=== PATIENT | female | born 1945 | race Caucasian/White ===

== ENCOUNTER 2023-08-23 11:59 | Emergency (ER) | payer MEDICARE, BC, SELFPAY ==
[2023-08-23 12:09] VITALS: BP 163/75; PULSE 87; RESP 17; TEMP 37.1; O2SAT 94; BMI 29.4
--- NOTE | 2023-08-23 12:22 | ED.GENADULT ---
HPI - General Adult General Chief complaint: Abdominal Pain Stated complaint: Abdominal pain, suspected hernia Time Seen by Provider: 08/23/23 12:06 Source: patient Mode of arrival: ambulatory Limitations: no limitations History of Present Illness HPI narrative: 78-year-old female presenting today with 2 concerns 1. She describes a hard painful lump just above her belly button. She states that it comes and goes. She has noticed it for the last 3 days. She states that right now it is not there. She denies nausea or vomiting. No weakness or lightheadedness. Her 2nd concern today is that she states her stools have been dark brown or black for the last 3 or 4 days as well. Again no lightheadedness or dizziness. She is not short of breath. No chest pain. She has not seen any dark red blood in her stools. No Difficulty urinating. No changes in her bowel habits. 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 Current medications include acetaminophen p.r.n., atorvastatin, carvedilol, losartan, nifedipine, pantoprazole in 40 mg daily. Related Data Allergies Allergy/AdvReac Type Severity Reaction Status Date / Time Penicillins Allergy Unknown Unknown Verified 08/23/23 12:06 Review of Systems Status of ROS: Reports: 10 or more systems reviewed and unremarkable except as noted in History and below Exam Narrative: Exam Narrative: Well-nourished well-developed patient in no acute distress. Alert and oriented. Answers questions appropriately. Mood and affect are appropriate. Thoughts are goal oriented and rational. No tangential or magical thinking noted. Patient speaks in full sentences without needing to catch her breath. She is hard of hearing. HEENT: Normocephalic atraumatic. Pupils are equally round reactive to light. Extraocular muscles are intact. Conjunctivae are moist without any icterus noted. Moist mucous membranes. Posterior pharynx is normal. Neck is soft without any lymphadenopathy or thyromegaly. No masses are appreciated. Cardiovascular: Heart is regular rate and rhythm S1 and S2 are present without any murmurs. Lungs: Clear to auscultation bilaterally no wheezes rhonchi or rales are appreciated. Patient takes deep breaths without any discomfort. Abdomen: Soft and nontender nondistended with normal bowel sounds. No guarding or rebound. No masses or organomegaly appreciated. Skin: Warm dry and intact. Rectal: Normal rectal tone. She does have some external hemorrhoids that are not thrombosed. There is no bleeding noted. Very small amount of stool in the rectal vault that is not dark or malodorous. Const: Vital Signs, click to edit/add: Vital Signs - 24 hr 08/23/23 12:09 Temperature 98.8 F Pulse Rate [Pulse Oximeter] 87 Respiratory Rate 17 Blood Pressure [Ri ght Upper Arm] 163/75 H Pulse Oximetry 94 Oxygen Delivery Me thod Room Air Course Course ED Course: Stool sample was sent for a fecal occult blood examination -this was negative. CBC is unremarkable. Chemistry show hyponatremia 127. Vital Signs Vital signs: Initial Vital Signs Temperature 98.8 F 08/23/23 12:09 Temperature Source Temporal Artery Scan 08/23/23 12:09 Pulse Rate 87 08/23/23 12:09 Respiratory Rate 17 08/23/23 12:09 Blood Pressure 163/75 H 08/23/23 12:09 Blood Pressure Mean 104 08/23/23 12:09 Pulse Oximetry 94 08/23/23 12:09 Oxygen Delivery Method Room Air 08/23/23 12:09 Vital Signs Temperature 98.8 F 08/23/23 12:09 Pulse Rate 87 08/23/23 12:09 Respiratory Rate 17 08/23/23 12:09 Blood Pressure 163/75 H 08/23/23 12:09 Pulse Oximetry 94 08/23/23 12:09 Oxygen Delivery Method Room Air 08/23/23 12:09 Temperature 98.8 F 08/23/23 12:09 Pulse Rate 87 08/23/23 12:09 Respiratory Rate 17 08/23/23 12:09 Blood Pressure 163/75 H 08/23/23 12:09 Pulse Oximetry 94 08/23/23 12:09 Oxygen Delivery Method Room Air 08/23/23 12:09 Medical Decision Making MDM Narrative Medical decision making narrative: 78-year-old female following 1. Firm periumbilical mass: Likely hernia. 2. Dark stools stool guaiac negative today with normal CBC. 3. Hyponatremia which is chronic. Patient does have appointment with her primary care provider already scheduled for Monday. I recommend she follow up at that time and discuss her symptoms. She may needed outpatient surgical consultation for a umbilical hernia and an outpatient colonoscopy if dark stools continue. Patient instructed to return to the ER if umbilical mass becomes very painful and does not reduce, or if she develops bright red blood per rectum. Medical Records Medical records reviewed: Yes I reviewed the patient's medical records Lab Data Lab results reviewed: Yes I reviewed the patient's lab results Labs: Lab Results 08/23/23 08/23/23 Range/Units 12:34 12:41 WBC 9.99 (4.50-11.00) K/uL RBC 3.90 L (4.00-5.20) m/uL Hgb 12.8 (12.0-16.0) gm/dL Hct 37.5 (33.0-51.0) % MCV 96 (80-100) fL MCH 33 (26-34) pg MCHC 34 (32-36) gm/dL RDW Coeff of Carla 12.9 (11.5-15.5) % Plt Count 311 (140-440) K/uL Neut % (Auto) 61.8 (42.0-72.0) % Lymph % (Auto) 24.5 (20-44) % Todd % (Auto) 8.8 (0.0-11.0) % Eos % (Auto) 3.8 (0.0-7.0) % Baso % (Auto) 0.9 (0.0-3.0) % Neut # (Auto) 6.17 (1.7-7.0) K/uL Lymph # (Auto) 2.45 (0.90-2.90) K/uL Todd # (Auto) 0.90 (0.00-0.90) K/UL Eos # (Auto) 0.38 (0.00-0.50) K/uL Baso # (Auto) 0.09 (0.00-0.30) K/uL Abs Immat Gran (auto) 0.02 (0.00-0.30) K/uL Imm/Tot Granulo (auto) 0.2 % Sodium 127 L (135-149) mmol/L Potassium 3.8 (3.6-5.1) mmol/L Chloride 88 L (96-114) mmol/L Carbon Dioxide 26 (20-32) mmol/L Anion Gap 13 (7-15) mEq/L BUN 17 (7-30) mg/dL Creatinine 0.5 (0.5-1.5) mg/dL Estimated Creat Clear 37.74 Estimated GFR 95 ml/min Glucose 85 (60-115) mg/dL Calcium 9.0 (8.4-10.6) mg/dL Stool Occult Blood Negative (Negative) Discharge Plan Discharge Clinical Impression: Hernia, umbilical, Hyponatremia, Dark stools Patient Disposition: Home, Self-Care Condition: Stable Additional Instructions: Your workup today was unremarkable-this included a stool guaiac test which was negative and a normal CBC. You do have low sodium at 127 which, per your medical records is not new for you, but you should have this rechecked at your appointment. Follow-up with your primary care provider on Monday as scheduled. During this appointment you can discuss the need for outpatient surgical consultation for a possible umbilical hernia and an outpatient colonoscopy if dark stools continue. Follow Up/Referrals: Ye Galvan MD [Referring] - Stand Alone Forms: Happy Inspector Info Instructions
[2023-08-23 12:55] LABS: Basophils Absolute Auto 0.09 K/uL (0.00-0.30); Basophils Percent Auto 0.9 % (0.0-3.0); Eosinophils Absolute Auto 0.38 K/uL (0.00-0.50); Eosinophils Percent Auto 3.8 % (0.0-7.0); Hematocrit 37.5 % (33.0-51.0); Hemoglobin* 12.8 gm/dL (12.0-16.0); Immature Granulocytes Abs Auto 0.02 K/uL (0.00-0.30); Immature Granulocytes Pct Auto 0.2 %; Lymphocytes Absolute Auto 2.45 K/uL (0.90-2.90); Lymphocytes Percent Auto 24.5 % (20-44); Mean Corpuscular HGB Conc 34 gm/dL (32-36); Mean Corpuscular Hemoglobin 33 pg (26-34); Mean Corpuscular Volume 96 fL (80-100); Monocytes Percent Auto 8.8 % (0.0-11.0); Neutrophils Absolute Auto 6.17 K/uL (1.7-7.0); Neutrophils Percent Auto 61.8 % (42.0-72.0); Platelet Count* 311 K/uL (140-440); RDW Coefficient of Variation % 12.9 % (11.5-15.5); White Blood Count* 9.99 K/uL (4.50-11.00)
[2023-08-23 13:07] LABS: Chloride* 88 mmol/L (96-114); Potassium* 3.8 mmol/L (3.6-5.1); Sodium* 127 mmol/L (135-149)
[2023-08-23 13:10] LABS: Anion Gap 13 mEq/L (7-15); Blood Urea Nitrogen* 17 mg/dL (7-30); Carbon Dioxide* 26 mmol/L (20-32); Creatinine* 0.5 mg/dL (0.5-1.5); Est. Creatinine Clearance* 37.74; Estimated Glomerular Filt Rate 95 ml/min; Glucose* 85 mg/dL (60-115); Slide Review Reflex No
[2023-08-23 13:12] LABS: Fecal Occult Blood* Negative (Negative)
== END 2023-08-23 13:53 | disposition home or self-care (01) ==
PROVIDERS: Emergency Provider Family Medicine; PCP Family Medicine
DX: K92.1 Melena (principal)
CPT/HCPCS: 36415; 80048; 82270; 85025; 99284

== ENCOUNTER 2024-01-11 06:07 | Day surgery (SDC) | payer MEDICARE, BC, SELFPAY ==
[2024-01-11] VITALS (15 sets, daily range): BP systolic 138–202; BP diastolic 65–88; PULSE 65–84; RESP 16–22; TEMP 36.8–36.9; O2SAT 92–96; BMI 29.5
[2024-01-11] MEDS: CEFAZOLIN 2 GM INJ IVP (00:52)
[2024-01-11] MEDS: SODIUM CHLORIDE 0.9 % (FLUSH) 10 ML SYRINGE IVF (07:03)
[2024-01-11] MEDS: LACTATED RINGERS 1000 ML 1,000 ML 100 ML IV (07:03)
[2024-01-11] MEDS: BUPIVACAINE 0.25% 30 ML 5 ML INJECTION (07:49)
[2024-01-11] MEDS: BUPIVACAINE LIPOSOME 133 MG/10 ML INJ INFILTRATI (08:24)
[2024-01-11] MEDS: BUPIVACAINE 0.25% 30 ML 10 ML INJECTION (08:24)
--- NOTE | 2024-01-11 08:34 | PM.GSPRC ---
Operative Note Date of procedure: 01/11/24 Pre-op diagnosis: Symptomatic Umbilical hernia Post-op diagnosis: Same Type of Procedure: Open repair 2 cm umbilical hernia with mesh Indications: Patient is a 78-year-old female who developed an umbilical hernia. This has been increasingly difficult for her to reduce. After discussion she elected to proceed with repair Procedure Description: After discussing the risks and benefits of the procedure, the patient signed informed consent.? The operative site was marked and the patient was brought to the operating room and placed on the operating table in supine position.? Care was taken to pad the patient's pressure points.?? The patient was then given sedation by anesthesia.?? The operative site was then prepped and draped in the usual sterile fashion.? A time-out was then performed. Local anesthetic was injected into the fascia, skin and subcutaneous tissues. A curvilinear incision was made just above the umbilicus. Dissection was carried down into the subcutaneous tissue using cautery. The hernia sac was encountered and care was taken to not enter it. Dissection was taken down to the fascia, and the umbilical stalk was carefully dissected off of the hernia sac. Once the hernia sac was dissected out circumferentially, it was reduced. The fascial edges were then cleared circumferentially. The hernia was 2 cm in size and so the decision was made to use a piece of mesh. A preperitoneal pocket was created using a combination of blunt dissection and cautery. Hemostasis appeared adequate. Once the posterior fascia was clear, a piece of [address] hernia mesh was placed in the preperitoneal space with care to ensure that it laid flat. This was secured into place using 2 0 PDS interrupted sutures. The tails were then trimmed and the fascial opening was closed with a running 0 Vicryl. The umbilicus was reapproximated to the fascia. The skin was then closed with running absorbable suture. A sterile dressing was then applied. ? The patient was then woken and transported to the recovery area in stable condition. ? The patient tolerated the procedure well. Findings: 2 cm fat-containing umbilical hernia Implants: Bard 3D max mesh Anesthesia: MAC Surgeon: Jessica Abreu MD Estimated blood loss (mL): 5 Condition: stable Disposition: PACU
[2024-01-11] MEDS: diphenhydrAMINE 25 MG CAPSULE PO (09:08)
--- NOTE | 2024-01-11 09:17 | W.ANESCHARGE ---
Anesthesia Charges Start Date/Time Anesthesia Start Date: 01/11/24 Anesthesia Start Time: 07:32 Stop Date/Time Anesthesia Stop Date: 01/11/24 Anesthesia Stop Time: 08:55 Summary Extremes of Age - Over 70 or under 1: SCRAP COLLECTOR
--- NOTE | 2024-01-11 10:09 | W.ANESCHARGE ---
Anesthesia Charges Start Date/Time Anesthesia Start Date: 01/11/24 Anesthesia Start Time: 07:32 Stop Date/Time Anesthesia Stop Date: 01/11/24 Anesthesia Stop Time: 08:55 Summary Extremes of Age - Over 70 or under 1: MDA
[2024-01-11] MEDS: LABETALOL HCL 5 MG/ML inj IVP (10:25)
[2024-01-11] MEDS: HYDRALAZINE HCL 20 MG/ML inj 10 MG IVP (10:55)
== END 2024-01-11 11:20 | disposition home or self-care (01) ==
PROVIDERS: PCP Family Medicine; Visit Provider Surgery
PROC: (CPT 49591; principal; 2024-01-11 07:30)
DX: K42.9 Umbilical hernia without obstruction or gangrene (principal)
CPT/HCPCS: 49591; 00752; 00830; 99100; A4467; A9270; C1781; C9290; J0360; J0665; J0690; J2250; J2405; J2704; J3010; J3490; J7120

== ENCOUNTER 2024-02-24 09:32 | Emergency (ER) | payer MEDICARE, BC, SELFPAY ==
--- OUTSIDE RECORDS SUMMARY | 2024-02-24 09:38 | XMS_ITS | Encounter Summary ---
Author Name Unknown Organization [facility] Address [address] [place] [id number] Care Team Providers Care Scrap Drop Operator Name Role Phone Elsewhere, Pcp Primary Care Provider Unavailabl e Reason for Visit * Reason Onset Date Comments Prosthetic Prescription 01/05/2024 Encounter Details Date Type Department Care Team (Latest Contact Info) Description 01/05/2024 Clinical Communication Department of Physical Medicine and Rehabilitation in [place], [place] [address] [place] [address] Keyon Hoffman M.D. [address] [place] [address] Prosthetic Prescription Social History Tobacco Use Types Packs/Day Years Used Date Smoking Tobacco: Never Smokeless Tobacco: Never Alcohol Use Standard Drinks/Week Comments Never 0 (1 standard drink = 0.6 oz pur e alcohol) Humiliation, Afraid, Rape, and Kick questionnair e Answer Date Recorded Within the last year, have y ou been afraid of your partner or ex-partner? No 07/15/2022 Within the last year, have y ou been humiliated or emotionally abused in other ways by your partner or ex-partner? No Within the last year, have y ou been kicked, hit, slapped, or otherwise physically hurt by your partner or ex-partner? No 07/15/2022 Within the last year, have y ou been raped or forced to have any kind of sexual activity by your partner or ex-partner? No 07/15/2022 Social Connection and Isolat ion Panel [NHANES] Answer Date Recorded In a typical week, how many times do you talk on the phone with family, friends, or neighbors? More than three times a week 07/15/2022 How often do you get togethe r with friends or relatives? Once a week 07/15/2022 How often do you attend chur ch or restorationist services? More than 4 times per year 07/15/2022 Do you belong to any clubs o r organizations such as samaritan groups, unions, fraternal or athletic groups, or school groups? No 07/15/2022 How often do you attend meet ings of the clubs or organizations you belong to? Never 07/15/2022 Are you , , di vorced, , never , or living with a partner? Never 07/15/2022 AUDIT-C Answer Date Recorded Q1: How often do you have a drink containing alc ohol? Never 07/15/2022 Average Number of Drinks Not on file 022 Frequency of Binge Drinking Not on file 06/24 Overall Financial Resource Strain (CARDIA) Answe r Date Recorded How hard is it for you to pa y for the very basics like food, housing, medical care, and heating? Not hard at all 07/15/2022 [employer] [facility] - Occupational Stress Questionnaire Answer Date Recorded Do you feel stress - tense, restless, nervous, or anxious, or unable to sleep at night because your mind is troubled all the time - these days? Not at all 07/15/2022 Exercise Vital Sign Answer Date Recorde d On average, how many days pe r week do you engage in moderate to strenuous exercise (like a brisk walk)? 0 days 07/15/2022 On average, how many minutes do you engage in exercise at this level? 0 min 07/15/2022 Hunger Vital Sign Answer Date Recorded Within the past 12 months, y ou worried that your food would run out before you got the money to buy more. Never true 07/15/20 22 Within the past 12 months, t he food you bought just didn't last and you didn't have money to get more. Never true 07/15/2022 PRAPARE - Transportation Answer Date Re corded In the past 12 months, has l ack of transportation kept you from medical appointments or from getting medications? No 06/24 In the past 12 months, has l ack of transportation kept you from meetings, work, or from getting things needed for daily living? No 07/15/2022 Housing Stability Vital Sign Answer Phillip e Recorded In the last 12 months, was t here a time when you were not able to pay the mortgage or rent on time? No 07/15/2022 In the last 12 months, how many places have you lived? 2 07/15/2022 In the last 12 months, was t here a time when you did not have a steady place to sleep or slept in a usp (including now)? No 07/15/2022 Nutrition Answer Date Recorded Nutrition: EVOO Fat Source No 07/15 On average, how many serving s of fruits and vegetables do you eat per day (serving size is equal to 1 cup or approximately the size of a tennis ball)? 0-1 07/15/2022 Dental Answer Date Recorded Dental: Regular Dentist Yes 07/15/20 Employment Answer Date Recorded Employment status Retired 07/15/2022 Education Answer Date Recorded What is the highest level of school you have completed or the highest degree you have received? 12th grade 07/15/2022 Sex and Gender Information Value Date Recorded Sex Assigned at Female 07/15/2022 11:12 AM CDT Gender Identity Female 07/15/2022 11:12 AM CDT Sexual Orientation Straight 07/15/2022 11 :12 AM CDT documented as of this encounter Miscellaneous Notes * Telephone Encounter - Renee Yun - 01/05/2024 10:07 AM CDT A prosthetic prescription was given to [facility], [address] [place] [address], [address], [place], [address]. documented in this encounter Plan of Treatment Not on file documented as of this encounter Visit Diagnoses Not on filedocumented in this encounter Care Teams Scrap Drop Operator Relationship Specialty Start Date End Date Elsewhere, Pcp PCP - General Internal Medicine 05/17/22 documented as of this encounter
--- OUTSIDE RECORDS SUMMARY | 2024-02-24 09:38 | XMS_ITS | Clinical Summary ---
Author Name Unknown Organization [facility] Address [address] [place] [address] Care Team Providers Care Therapist'S Assistant Name Role Phone Elsewhere, Pcp Primary Care Provider Unavailabl e Source Comments Patient records contain information from all sites at [facility]. For routine questions regarding patient records, call [phone] during business hours, M-F 8:00 AM - 5:00 PM Central Time. Record requests for emergency care only can be directed to [phone] at any time.[facility] Allergies Active Allergy Reactions Criticality Noted Date Comments Amoxicillin Itching Medium 05/17/2022 Atenolol Other (see comments) 05/17/2022 Fatigue Clindamycin Itching Medium 05/17/2022 Ibuprofen GI bleeding High 05/17/2022 Penicillins Itching Medium 05/17/2022 Medications Medication Sig Dispensed Refills Start Date End Date Status fish oil 500 mg capsule Take 1,000 mg by mouth 2 (two) times a day. Active vitamin A,C,N-zbbsjd-vvgvnb ls (OCUVITE W/LUTEIN) 300 mcg (1,000 Unit)-200 mg-60 Unit-2 mg tablet Take 1 tablet by mouth 2 (two) times a day with meals. Active carvediloL (COREG) 6.25 mg tablet Take 6.25 mg by mouth 2 (two) times a day with meals. Active cholecalciferol, vitamin D3, 25 mcg (1,000 Unit) tablet Take 50 mcg by mouth daily. Active NIFEdipine XL (PROCARDIA XL) 30 mg 24 hr tablet Take 60 mg by mouth daily. Active atorvastatin (LIPITOR) 10 mg tablet Take 10 mg by mouth daily. With evening meal Active ascorbic acid, vitamin C, (VITAMIN C) 500 mg tablet Take 500 mg by mouth 2 (two) times a day. Active acetaminophen (TYLENOL) 500 mg tablet Take 500 mg by mouth every 6 (six) hours as needed for pain. 500 to 1000 mg Active polyethylene glycol 400 (Blink Tears) 0.25 % ophthalmic solution 1 drop 2 (two) times a day as needed for dry eyes. Active furosemide (LASIX) 20 mg tablet Take 1 tablet (20 mg total) by mouth daily. Hold until PCP follow-up 05/25/2022 Active bisacodyL (DULCOLAX) 10 mg suppository Insert 1 suppository (10 mg total) into the rectum daily as needed for constipation. 05/25/2022 Active sodium chloride (OCEAN) 0.65 % nasal spray Administer 1 spray into each nostril as needed for congestion. 15 mL 12 07/11/2022 Active melatonin 3 mg tablet Take 2 tablets (6 mg total) by mouth at bedtime as needed for sleep. 30 tablet 1 07/11/2022 Active dextromethorphan-gu aiFENesin (ROBITUSSIN-DM) 10-100 mg/5 mL syrup Take 10 mL by mouth every 4 (four) hours as needed for cough or congestion. 354 mL 1 07/11/2022 Active polyethylene glycol (MIRALAX) 17 gram powder packet Take 1 packet (17 g total) by mouth 2 (two) times a day as needed for constipation. Dissolve each 17 g dose in 240 mLs (8 ounces) of beverage. 07/11/2022 Active losartan (COZAAR) 100 mg tablet Take 1 tablet (100 mg total) by mouth daily. Hypertension 07/11/2022 Active cefadroxil (DURICEF) 500 mg capsule Take 500 mg by mouth at bedtime. 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 06/29/2022 Osteomyelitis Lower Leg Acute Right 06/29/2022 Abscess Leg Right 06/27/2022 COVID-19 Infection 06/16/2022 Hyponatremia 05/25/2022 Anemia Posthemorrhagic Acute (Blood Loss Anemia) 05/25/2022 Amputation Leg Below Knee Status Post Right 04/24 Hypertension Essential Primary 05/17/2022 Obstructive Sleep Apnea Adult 05/17/2022 Hyperlipidemia 05/17/2022 Deafness Left 05/17/2022 PreDiabetes 05/17/2022 Gastroesophageal Reflux Disease NOS 11/14/2012 Resolved Problems Problem Noted Date Diagnosed Date Resolved Date Pharyngitis Acute 06/16/2022 07/05/2022 Other Acute Postprocedural Pain 05/22/2022 05/25/2022 Infection Foot 05/17/2022 05/25/2022 Arthritis Septic 05/17/2022 05/25/2022 Leukocytosis 05/17/2022 05/25/2022 Cellulitis Foot Right 05/17/20222021 Abnormal C Reactive Protein 05/17/2022 05/25/2022 Encounters Date Type Department Care Team Description 01/05/2024 Clinical Communication Department of Physical Medicine and Rehabilitation in [place], [place] [address] [place] [address] Keyon Hoffman M.D. Prosthetic Prescription 01/04/2024 11:00 AM CDT Comprehensive Visit Department of Physical Medicine and Rehabilitation in [place], [place] [address] [place] [address] Keyon Hoffman M.D. Amputation Leg Below Knee Status Post Right (HCC) (Primary Dx) from Last 3 Months Social History Tobacco Use Types Packs/Day Years Used Date Smoking Tobacco: Never Smokeless Tobacco: Never Tobacco Cessation:Counseling Given: No Alcohol Use Standard Drinks/Week Comments Never 0 [...] often do you attend chur ch or zoroastrianism services? More than 4 times per year 07/15/2022 Do you belong to any clubs o r organizations such as evangelical groups, unions, fraternal or athletic groups, or [...] and heating? Not hard at all 07/15/2022 [facility] - Occupational Stress [...] No 07/15/2022 Housing Stability Vital Sign Answer Phlilip e Recorded In the last 12 months, [...] place to sleep or slept in a skilled nursing (including now)? No 07/15/2022 Nutrition Answer Date [...] Orientation Straight 07/15/2022 11 :12 AM CDT Last Filed Vital Signs Vital Sign Reading Time Taken Comments Blood Pressure 118/57 07/11/2022 12:07 PM CDT Pulse 71 07/11/2022 12:07 PM CDT Temperature 37.2 ??C (99 ??F) 07/11/2022 12:07 PM CDT Respiratory Rate 16 07/11/2022 12:07 PM CDT Oxygen Saturation 94% 07/11/2022 12:07 PM CDT Inhaled Oxygen Concentration - - Weight 70.4 kg (155 lb 3.3 oz) 07/07/2022 12:06 AM CDT Height 160 cm (5' 3) 06/28/2022 6:06 AM CDT Body Mass Index 27.49 06/28/2022 6:06 AM CDT Plan of Treatment Health Maintenance Due Date Last Done Comments Office Visit for Blood Press ure Check / Re-check 05/17/2023 05/17/2022 Depression Screening (Annual PHQ-2) 10/23/2023 Fall Risk Screen (Annual) 10/23/2023 COVID-19 Vaccine (2022-11 4 season) 2024 11/28/2023, 09/20/2023, 04/06/2023, Additional history exists Creatinine Level (Kidney Fun ction Test) 12/20/2024 12/20/2023, 09/20/2023, 07/03/2022, Additional history exists Fasting Glucose for Diabetes Screening 12/20/2024 12/20/2023, 09/20/2023, 07/03/2022, Additional history exists Potassium Level 12/20/2024 12/20/2023, 08/24, 07/03/2022, Additional history exists Sodium Level 12/20/2024 12/20/2023, 08/24, 07/03/2022, Additional history exists DTaP,Tdap,and Td Vaccines (3 - Td or Tdap) 02/04/2026 02/05/2016, 03/22/2012, 03/27/2003 Pneumococcal vaccine (65+ years) Completed 03/25/20, 02/11/2009 Zoster Vaccines Completed 12/17/2018, 07/23, 04/03/2007 Influenza Vaccine Completed 08/15/2023, , 07/18/2021, Additional history exists Medical Devices Implanted Type Area Assembler Bonding Device Identifier Shelf Expiration Date Model / Serial / Lot Knee Implant Knee Implant Bilateral : Knee Procedures Procedure Name Priority Date/Time Associated Diagnosis Comments EXTI BASIC METABOLIC PANEL, S/P Routine 12/20/2023 12:04 PM WELDING ROBOT OPERATOR from Last 3 Months or Most Recently Relevant to Health Maintenance Advance Directives For more information, please contact: [phone] * DNR/DNI (Latest Code Status on File) Date Activated Date Inactivated Comments 05/25/2022 7:03 PM 07/11/2022 2:31 PM * DNR/DNI Date Activated Date Inactivated Comments 05/20/2022 11:24 PM 05/25/2022 3:10 PM * DNR/DNI Date Activated Date Inactivated Comments 05/20/2022 5:31 PM 05/20/2022 11:24 PM * DNR Date Activated Date Inactivated Comments 05/20/2022 9:39 AM 05/20/2022 5:31 PM * DNR/DNI Date Activated Date Inactivated Comments 05/17/2022 4:06 PM 05/20/2022 9:39 AM Care Teams Therapist'S Assistant Relationship Specialty Start Date End Date Elsewhere, Pcp PCP - General Internal Medicine 05/17/22
--- OUTSIDE RECORDS SUMMARY | 2024-02-24 09:38 | XMS_ITS | Referral Summary ---
Author Name Unknown Organization [facility] Address [address] [place] [address] Care Team Providers Care Fifth Hand Name Role Phone Elsewhere, Pcp Primary Care Provider Unavailabl e Source Comments Patient records contain information from all sites at [facility]. For routine questions regarding patient records, call [phone] during business hours, M-F 8:00 AM - 5:00 PM Central Time. Record requests for emergency care only can be directed to [phone] at any time.[facility] Encounters Date Type Department Care Team Description 01/05/2024 Clinical Communication Department of Physical Medicine and Rehabilitation in [place], [place] [address] [place] [address] Keyon Hoffman M.D. Prosthetic Prescription 01/04/2024 11:00 AM CDT Comprehensive Visit Department of Physical Medicine and Rehabilitation in [place], [place] [address] [place] [address] Keyon Hoffman M.D. 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 Active vitamin A,C,Q-xquunx-ksguwf ls (OCUVITE W/LUTEIN) 300 mcg (1,000 Unit)-200 [...] 05/17/20222021 Abnormal C Reactive Protein 05/17/2022 05/25/2022 Social History Tobacco Use Types Packs/Day Years [...] often do you attend chur ch or gnosticist services? More than 4 times per year 07/15/2022 Do you belong to any clubs o r organizations such as congregational groups, unions, fraternal or athletic groups, or [...] and heating? Not hard at all 07/15/2022 [facility] of Occupat ional Health - Occupational Stress [...] place to sleep or slept in a m[facility]p (including now)? No 07/15/2022 Nutrition Answer Date [...] 06/28/2022 6:06 AM CDT Plan of Treatment Not on file Medical Devices Implanted Type Area Sanitation Laborer Device Identifier Shelf Expiration Date Model / Serial / Lot Knee Implant Knee Implant Bilateral : Knee Procedures Procedure Name Priority Date/Time Associated Diagnosis Comments EXTI BASIC METABOLIC PANEL, S/P Routine 12/20/2023 12:04 PM SWEEPER BRUSH MAKER MACHINE from Last 3 Months or Most Recently Relevant to Health Maintenance Advance Directives For more information, please contact: [phone] * DNR/DNI (Latest Code Status on File) [...] 4:06 PM 05/20/2022 9:39 AM Care Teams Fifth Hand Relationship Specialty Start Date End Date Elsewhere, Pcp PCP - General Internal Medicine 05/17/22
--- OUTSIDE RECORDS SUMMARY | 2024-02-24 09:38 | XMS_ITS ---
Author Name Unknown Organization [facility] Address [address] [place] [address] Care Team Providers Care Metallurgical Lab Technician Name Role Phone Unavailable Unavailable Unavailable Surgery Details Not on file Complications Check Surgery Details section. Procedure Estimated Blood Loss Check Surgery Details section. Procedure Findings Check Surgery Details section. Procedure Specimens Taken Check Surgery Details section.
--- OUTSIDE RECORDS SUMMARY | 2024-02-24 09:39 | XMS_ITS | Encounter Summary ---
Author Name Unknown Organization [facility] Address [address] [place] [address] Care Team Providers Care Magazine Hand Name Role Phone Elsewhere, Pcp Primary Care Provider Unavailabl e Reason for Referral * Outpatient (Routine) - Authorized Specialty Diagnoses / Procedures Referred By Contact Referred To Contact Physical Medicine and Rehabilitation Keyon Hoffman M.D. [address] [place] [address] [facility] Referral ID Status Reason Start Date Expiration Date V isits Requested Visits Authorized [id number] Authorized 01/04/2024 07/05/2025 1 1 * Physical Therapy (Routine) - Authorized Specialty Diagnoses / Procedures Referred By Contac t Referred To Contact Diagnoses Amputation Leg Below Knee Status Post Right (HCC) Procedures Prosthetic prescription lower [place] [address] [facility] Referral ID Status Reason Start Date Expiration Date V isits Requested Visits Authorized [id number] Authorized 01/04/2024 01/03/2025 99 99 Reason for Visit * Outpatient (Routine) - Authorized Specialty Diagnoses / Procedures Referred By Contact Referred To Contact Physical Medicine and Rehabilitation Keyon Hoffman M.D. [address] [place] [address] [facility] Referral ID Status Reason Start Date Expiration Date V isits Requested Visits Authorized [id number] Authorized 05/17/2023 05/16/2026 2 2 Encounter Details Date Type Department Care Team (Latest Contact Info) Description 01/04/2024 11:00 AM CDT Comprehensive Visit Department of Physical Medicine and Rehabilitation in [place], [place] [address] [place] [address] Keyon Hoffman M.D. 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 More than 4 times per year 07/15/2022 Do you belong to any clubs o r organizations such as muslim groups, unions, fraternal or athletic groups, or [...] and heating? Not hard at all 07/15/2022 [facility] of Occupat ional Health - Occupational Stress [...] place to sleep or slept in a halfway (including now)? No 07/15/2022 Nutrition Answer Date [...] AM CDT documented as of this encounter Progress Notes * Humberto Lobo M.D. - 01/04/2024 11:00 AM CDT SUBJECTIVE REQUESTING PROVIDER Keyon Hoffman M.D. CHIEF COMPLAINT/REASON FOR VISIT HISTORY OF PRESENT ILLNESS Markjesusita Pereyra FREDRICK Mosley is a 78 y.o. female from [place], [place] with a past medical history of bilateral lower extremity edema secondary to peripheral venous insufficiency, bilateral total knee arthroplasties, right foot surgery with bone removal (about 2019), CATRACHITA on CPAP, left ear deafness, obesity (BMI 30.7), pre diabetes, hyperlipidemia, and essential hypertension. She developed a right foot infection in the context of worsening bilateral lower extremity edema inJuly 2021. She was admitted to the hospital in [place] where MRI on 05/13/2022 demonstrated subcutaneous abscess with concern for septic joint. I&D was performed on 05/13. Cultures grew 4+ staphaureus. She had continuing drainage from the wound and her local roller skate assembler recommended transfer [facility] where she was admitted on 05/17/2022. She underwent right transtibial amputation on 05/20/[address] Frank. There was some delay in healing as well as drainage from the residual limb butthis resolved and she was cleared to begin prosthetic training. She followed up in the amputee Clinic and was prescribed a right transtibial prosthesis. Fili from [facility] went up and visited her at the [facility]. She worked with therapy and was able to transfer to independent living in an apartment there. She was last seen in amputee clinic on 05/17/23 where it was noted that prior medial hamstring irritation was resolved with a linerand fungal infection was resolved with topical Monistat. Her socket was also slightly loose and hersock ply was increased to 5-ply. A new prescription was placed for a right transtibial prosthesis with silicone liner with pin lock, the prosthetic foot is a Balance S accommodative foot. This prosthesis was made at [facility], however, she has experienced maturation of the residual limb with reduction in volume which has required Fili at [facility] to go up from 3 ply to 8 ply socks and add several pads. She has been wearing a imaging account manager at night. Patient seen today alongside her sister, Claudia. Today, Mark reports that her leg has become smaller since her last visit. She feels that the socket is looser despite going up in sock ply and the addition of pads. She also feels looseness between her leg and the liner. She is not having any pain withuse of her prosthesis. She reports some redness and itching more proximally on her thigh that has developed over the last few weeks. This is located near the top of where her imaging account manager ends. She has not had issues with the skin of her posterior knee where she had a prior fungal infection. On three occasions her prosthesis has fallen off at the level of the pin-lock connection over the last few months. Each of these events occurred with transfers and her liner stayed on her leg. She confirms thatwhen donning the prosthesis in advance of these events she heard the pin lock mechanism engage with4 clicks. Despite this, she reports that she has tolerated her prosthesis rather well. She dons the prosthesis early in the morning and wears it all day without any breaks. She is able to walk around in her care facility for several walks per day, go on outdoor walks for exercise, and is able to sit in her prosthesis without significant difficulty. OBJECTIVE There were no vitals taken for this visit. PHYSICAL EXAMINATION General: She is a 78 y.o. female in no acute physical distress. Extremities: Right lower extremity residual limb status post right transtibial amputation with a well-healed surgical site incision. There is significant redundant tissue at the distal most aspect ofher residual limb that falls posteriorly with a lamina dependent position. Skin: Area of skin irritation proximally on the thigh with signs of excoriation likely from itching. No erythema or skin defects posteriorly of the site of prior fungal infection. Prosthesis: Right transtibial prosthesis with Keasy Cone and silicone liners with 3 pads at the [place] liner. The silicone liner is slightly loose near the proximal tibia. Socket is slightly loose with 8 sock ply the prosthetic foot is a Balance S accommodative foot. Gait: Patient was able to stand and ambulate independently with the use of a 2 wheeled walker down the hallway and back. She has a step to gait and her prosthetic leg is slightly short. ASSESSMENT / PLAN Ms. Mosley is a 78 y.o. female from [place], [place] with a past medical history of bilateral lower extremity edema secondary to peripheral venous insufficiency, bilateral total knee arthroplasties, right foot surgery with bone removal (about 2019), CATRACHITA on CPAP, left ear deafness, obesity (BMI 30.7), pre diabetes, hyperlipidemia, and essential hypertension. She required a right transtibial amputation on 05/20/2022. Ms. Mosley is overall pleased with her prosthesis and thankful for how she is able to ambulate withit. However, she is having some difficulties which are due to the socket being loose fitting which is a result the maturation of her residual limb and atrophy of soft tissues. Challenges with her prosthetic fit and management have been due to the redundant tissue distally and issues related to her skin she reports she is sensitive skin. Specifically the area of skin irritation proximally on her thigh he has likely a result of a new imaging account manager with silicone weighing station operator points of the proximal band of the imaging account manager. We believe that the issue she has been having with her pin-lock disengaging is likely due to contact with the release mechanism when performing transfers as her liner remains on her residuallimb and on evaluation the mechanism appears to be functioning appropriately. Ultimately, she is appropriate for a replacement socket at this time. A prescription will be written for a right transtibial permanent socket with suspension locking mechanism in the form of a pin lock, silicone liner, and Keasy Cone. We will also downsized the silicone liner to allow for a more opt imal fit and shortened the pin release mechanisms so she does not accidentally release it during transfers. Fili will also get her a new Oracle Adf Developer without gripping dots at the top cuff. We also reviewed skin and liner/sock hygiene at today's appointment. Specifically we would like herto continue washing her liner with soap and water daily. We recommend using a soap that does not irritate her skin when washing the silicone liner to prevent any dermatitis. After Mark Mosley LPN's edwu-pq-pchf visit today I anticipate she has good potential to function at a K2 level (Has the ability or potential for ambulation with the ability to traverse low level environmental barriers such as curbs, stairs or uneven surfaces. Typical of the limited communityambulator). she is motivated to use the prosthesis to ambulate within her care facility, go on walks for pleasure/exercise, and visit with her friends and family in social settings. EDUCATION: We discussed the diagnosis and treatment plan in detail. Mark Mosley LPN expressed understanding of the content. No apparent learning barriers were identified; learning preferences include listening. Her questions were answered. She will be seen in follow up in the amputee clinic in 1 year but she is aware that we are always here if she to see us sooner or has any difficulties. Time spent with the patient: 60 minutes Associated attestation - Keyon Hoffman M.D. - 01/04/2024 4:22 PM CDT The following portions of the patient's history were reviewed and updated as appropriate: current medications, allergies, medical history, surgical history, social history, family history, and problem list. I reviewed the pertinent imaging studies and agree with the interpretations as recorded. I reviewed the pertinent laboratory and diagnostic data. I reviewed the pertinent clinical notes in the electronic health record. I saw and evaluated the patient, participating in the dubose portions of the service. I reviewed the case in detail, and agree with the resident???s plan. Please see today's note by Dr. Lobo for additional details and documentation. I spent 30 minutes with the patient on this follow-up visit. * Keyon Hoffman M.D. - 01/04/2024 11:00 AM CDT A prescription was placed for the following: Lower Extremity Prescription Expected Level of Function (K): 2 - Limited community ambulator Anatomical Change?: Yes Prosthetic Side: Right Right Lower Extremity Level: Transtibial Prosthesis: Definitive Design: Endoskeletal Socket Design: Patellar-Tendon Bearing and Socket Replacement Liner: Silicone (Silicone liner with pin lock and Keasy Cone liner) Suspension: Suspension Locking Mechanism Miscellaneous: Compression Socks, Prosthetic Socks, Sheath, Test Socket, Molded Distal Cushion, Alignable System, Ultralight, Total Contact, External Frame and Acrylic Socket Compression Sock Quantity: 2 Sheath Quantity: 6 Prosthetic Sock Quantity: 12 documented in this encounter Plan of Treatment Scheduled Referrals Name Type Priority Associated Diagnoses Order Schedule Physical Medicine and Rehabilitation office visit (clinic) Outpatient Referral Routine Expected: 01/03/2025 (Approximate), Expires: 04/05/2025 documented as of this encounter Visit Diagnoses Diagnosis Amputation Leg Below Knee Status Post Right (HCC)- Primary documented in this encounter Care Teams Magazine Hand Relationship Specialty Start Date End Date Elsewhere, Pcp PCP - General Internal Medicine 05/17/22 documented as of this encounter
--- OUTSIDE RECORDS SUMMARY | 2024-02-24 09:39 | XMS_ITS | Continuity of Care Document ---
Author Name Unknown Organization [facility] Address [address] [address] [place] [address] Phone Care Team Providers Care Refrigeration Plant Cork Insulator Name Role Phone Unavailable Unavailable Unavailable Procedures Procedure Date Subsqt Hosp-da E&m Stable 15 M 18 Init Hosp-da E&m Mod Severity 8 Ugi Endo; W/contrl Bleed Any M 18 Advance Directives Directive Yes / No Effective Date File Name No Information Encounters Encounter Description Practice Location Reason(s) For Visit Diagnoses Date Provider Providers Copied on Encounter Subsqt Hosp-da E&m Stable 15 M [facility] [place], [address] [address], [place], [place], [id number], tel:[phone] [facility] No Information 8 No Information Referring Provider: Rubin Castaneda, [address] [place], [address]. tel:[phone] Init Hosp-da E&m Mod Severity [facility], [address] [address], [place], [place], [id number], tel:[phone] [facility] No Information 8 [facility]. [address] [facility] [address], [place], [place], [id number], [place]. tel:[phone] Referring Provider: Rubin Castaneda, [address] [place], [address]. tel:[phone] Family History Family Member Type Diagnosis Age At Onset No Information Payers Payer name Insurance type Covered alliance party ID Authordaniloa timadiha(s) Blue [employer] [place] [employer] BL [id number] Social History Type Description Quantity Date Captured Comments Sex Female Smoking Status No Information Chief Complaint And Reason For Visit No Information Reason For Referral Reason For Referral No Information History Of Present Illness Encounter Date Complaint History Of Prese nt Illness No Information Functional Status Date Functional Assessmen t No Information Instructions Date Instruction Additional Infor mation No Information Assessments Type Assessment Date No Information Patient Care Teams Name Effective Dates (start - stop) Status Members No Information
[2024-02-24 09:48] VITALS: BP 167/76; PULSE 78; RESP 20; TEMP 37.5; O2SAT 95; BMI 32.8
[2024-02-24 10:20] VITALS: O2SAT 92
--- NOTE | 2024-02-24 10:21 | XR_ITS ---
Patient: KHUSHBU FOREMAN Facility:?[facility] Patient ID:?[id number] Site Patient ID:?[id number]. Site :?[id number] Study:?XRay-Chest 2 VIEW-02/24/2024 10:33:14 AM Ordering Physician:HI Final Report: INDICATION: Shortness of breath TECHNIQUE: Chest 2 views. COMPARISON: Chest x-ray 10/02/2015 FINDINGS: The heart is stable in size. The pulmonary vasculature is within normal limits. The lungs are clear without focal consolidation, pleural effusion or pneumothorax. There are wauq-vn-oicphpmh degenerative changes of the thoracic spine. IMPRESSION: No acute process. Dictated by Debby Pyle MD @ 02/24/2024 11:03:18 AM Dictated by: Debby Pyle MD @ 02/24/2024 11:03:24 Signed by:Benjy Pyle MD @02/24/2024 11:03:24 AM (Electronic Signature)
--- OUTSIDE RECORDS SUMMARY | 2024-02-24 10:28 | XMS_ITS ---
Author Name Unknown Organization [facility] Address [address] [place] [address] Care Team Providers Care Broomcorn Sorter Name Role Phone Unavailable Unavailable Unavailable Surgery Details Not on file Complications Check Surgery Details section. Procedure Estimated Blood Loss Check Surgery Details section. Procedure Findings Check Surgery Details section. Procedure Specimens Taken Check Surgery Details section.
--- OUTSIDE RECORDS SUMMARY | 2024-02-24 10:28 | XMS_ITS | Encounter Summary ---
Author Name Unknown Organization [facility] Address [address] [place] [address] Care Team Providers Care Major Gifts Director Name Role Phone Elsewhere, Pcp Primary Care Provider Unavailabl e Reason for Visit * Reason Onset Date Comments Prosthetic Prescription 01/05/2024 Encounter Details Date Type Department Care Team (Latest Contact Info) Description 01/05/2024 Clinical Communication Department of Physical Medicine and Rehabilitation in [place], [place] [address] [place] [address] Keyon Hoffman M.D. [address] [place] [address] Prosthetic Prescription Social History Tobacco Use Types [...] often do you attend chur ch or jehovah's witness services? More than 4 times per year 07/15/2022 Do you belong to any clubs o r organizations such as advent groups, unions, fraternal or athletic groups, or [...] and heating? Not hard at all 07/15/2022 [facility] of Occupat ional Health - Occupational Stress [...] place to sleep or slept in a penitentiary (including now)? No 07/15/2022 Nutrition Answer Date [...] prosthetic prescription was given to [facility], [address] [place] [address], [address], [place], [address]. documented in this encounter Plan of Treatment Not on file documented as of this encounter Visit Diagnoses Not on filedocumented in this encounter Care Teams Major Gifts Director Relationship Specialty Start Date End Date Elsewhere, Pcp PCP - General Internal Medicine 05/17/22 documented as of this encounter
--- OUTSIDE RECORDS SUMMARY | 2024-02-24 10:28 | XMS_ITS | Clinical Summary ---
Author Name Unknown Organization [facility] Address [address] [place] [address] Care Team Providers Care Customer Relations Consultant Name Role Phone Elsewhere, Pcp Primary Care Provider Unavailabl e Source Comments Patient records contain information from all sites at [facility]. For routine questions regarding patient records, call [phone] during business hours, M-F 8:00 AM - 5:00 PM Central Time. Record requests for emergency care only can be directed to [phone] at any time.[facility] Allergies Active Allergy Reactions Criticality Noted Date Comments Amoxicillin Itching Medium 05/17/2022 Atenolol Other (see comments) 05/17/2022 Fatigue Clindamycin Itching Medium 05/17/2022 Ibuprofen GI bleeding High 05/17/2022 Penicillins Itching Medium 05/17/2022 Medications Medication Sig Dispensed Refills Start Date End Date Status fish oil 500 mg capsule Take 1,000 mg by mouth 2 (two) times a day. Active vitamin A,C,D-blggvr-egjbtn ls (OCUVITE W/LUTEIN) 300 mcg (1,000 Unit)-200 [...] Department of Physical Medicine and Rehabilitation in [place], [place] [address] [place] [address] Keyon Hoffman M.D. Prosthetic Prescription 01/04/2024 11:00 AM CDT Comprehensive Visit Department of Physical Medicine and Rehabilitation in [place], [place] [address] [place] [address] Keyon Hoffman M.D. Amputation Leg Below Knee [...] often do you attend chur ch or congregational services? More than 4 times per year 07/15/2022 Do you belong to any clubs o r organizations such as religious groups, unions, fraternal or athletic groups, or [...] and heating? Not hard at all 07/15/2022 [facility] of Occupat ional Health - Occupational [...] place to sleep or slept in a half-way (including now)? No 07/15/2022 Nutrition Answer Date [...] history exists Medical Devices Implanted Type Area Agronomy Instructor Device Identifier Shelf Expiration Date Model / Serial / Lot Knee Implant Knee Implant Bilateral : Knee Procedures Procedure Name Priority Date/Time Associated Diagnosis Comments EXTI BASIC METABOLIC PANEL, S/P Routine 12/20/2023 12:04 PM MANAGER MAIL from Last 3 Months or Most Recently Relevant to Health Maintenance Advance Directives For more information, please contact: [phone] * DNR/DNI (Latest Code Status on File) [...] 4:06 PM 05/20/2022 9:39 AM Care Teams Customer Relations Consultant Relationship Specialty Start Date End Date Elsewhere, Pcp PCP - General Internal Medicine 05/17/22
--- OUTSIDE RECORDS SUMMARY | 2024-02-24 10:28 | XMS_ITS | Continuity of Care Document ---
Author Name Unknown Organization [facility] Address [address] [address] [place] [address] Phone Care Team Providers Care Rn Pool Name Role Phone Unavailable Unavailable Unavailable Procedures Procedure Date Subsqt Hosp-da E&m Stable 15 M 18 Init Hosp-da E&m Mod Severity 8 Ugi Endo; W/contrl Bleed Any M 18 Advance Directives Directive Yes / No Effective Date File Name No Information Encounters Encounter Description Practice Location Reason(s) For Visit Diagnoses Date Provider Providers Copied on Encounter Subsqt Hosp-da E&m Stable 15 M [facility] [place], [address] [address], [place], [place], [id number], tel:[phone] [facility] No Information 8 No Information Referring Provider: Rubin Castaneda, [address] [place], [address]. tel:[phone] Init Hosp-da E&m Mod Severity [facility], [address] [address], [place], [place], [address], tel:[phone] [facility] No Information 8 [facility]. [address] [facility], [facility] [address], [place], [place], [id number], [place]. tel:[phone] Referring Provider: Rubin Castaneda, [address] [place], [address]. tel:[phone] Family History Family Member Type Diagnosis Age At Onset No Information Payers Payer name Insurance type Covered libertarian ID Authordaniloa timadiha(s) Blue Cross [place] Blue BL [id number] Social History Type Description Quantity Date Captured [...]
--- OUTSIDE RECORDS SUMMARY | 2024-02-24 10:28 | XMS_ITS | Referral Summary ---
Author Name Unknown Organization [facility] Address [address] [place] [address] Care Team Providers Care Entry Specialist Name Role Phone Elsewhere, Pcp Primary Care Provider Unavailabl e Source Comments Patient records contain information from all sites at [facility]. For routine questions regarding patient records, call [phone] during business hours, M-F 8:00 AM - 5:00 PM Central Time. Record requests for emergency care only can be directed to [phone] at any time.[facility] Encounters Date Type Department Care Team Description 01/05/2024 Clinical Communication Department of Physical Medicine and Rehabilitation in [place], [place] [address] [place] [address] Keyon Hoffman M.D. Prosthetic Prescription 01/04/2024 11:00 AM CDT Comprehensive Visit Department of Physical Medicine and Rehabilitation in [place], [place] [address] [place] [address] Keyon Hoffman M.D. Amputation Leg Below Knee [...] 2 (two) times a day. Active vitamin A,C,K-nmitrd-cqozet ls (OCUVITE W/LUTEIN) 300 mcg (1,000 Unit)-200 [...] often do you attend chur ch or hindu services? More than 4 times per year 07/15/2022 Do you belong to any clubs o r organizations such as yarsanism groups, unions, fraternal or athletic groups, or [...] and heating? Not hard at all 07/15/2022 [facility] of Occupat ional Health - Occupational Stress [...] place to sleep or slept in a custodial (including now)? No 07/15/2022 Nutrition Answer Date [...] on file Medical Devices Implanted Type Area Sheep Sorter Device Identifier Shelf Expiration Date Model / Serial / Lot Knee Implant Knee Implant Bilateral : Knee Procedures Procedure Name Priority Date/Time Associated Diagnosis Comments EXTI BASIC METABOLIC PANEL, S/P Routine 12/20/2023 12:04 PM POLYSOMNOGRAPHIC TECHNOLOGIST from Last 3 Months or Most Recently Relevant to Health Maintenance Advance Directives For more information, please contact: [phone] * DNR/DNI (Latest Code Status on File) [...] 4:06 PM 05/20/2022 9:39 AM Care Teams Entry Specialist Relationship Specialty Start Date End Date Elsewhere, Pcp PCP - General Internal Medicine 05/17/22
--- OUTSIDE RECORDS SUMMARY | 2024-02-24 10:28 | XMS_ITS | Encounter Summary ---
Author Name Unknown Organization [facility] Address [address] [place] [address] Care Team Providers Care Sap Basis Consultant Name Role Phone Elsewhere, Pcp Primary Care Provider Unavailabl e Reason for Referral * Outpatient (Routine) - Authorized Specialty Diagnoses / Procedures Referred By Contact Referred To Contact Physical Medicine and Rehabilitation Keyon Hoffman M.D. 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 [address] [facility] Referral ID Status Reason Start Date Expiration Date V isits Requested Visits Authorized [id number] Authorized 01/04/2024 01/03/2025 99 99 Reason for Visit * Outpatient (Routine) - Authorized Specialty Diagnoses / Procedures Referred By Contact Referred To Contact Physical Medicine and Rehabilitation Keyon Hfofman M.D. [address] [place] [address] [facility] Referral ID Status Reason Start Date Expiration Date V isits Requested Visits Authorized [id number] Authorized 05/17/2023 05/16/2026 2 2 Encounter Details Date Type Department Care Team (Latest Contact Info) Description 01/04/2024 11:00 AM CDT Comprehensive Visit Department of Physical Medicine and Rehabilitation in [place], [place] [address] [place] [address] Keyon Hoffman M.D. [address] [place] [address] Amputation Leg Below Knee Status Post Right [...] How often do you attend chur or islam services? More than 4 times per year 07/15/2022 Do you belong to any clubs o r organizations such as shinto groups, unions, fraternal or athletic groups, or [...] and heating? Not hard at all 07/15/2022 [facility] of Occupat ional Health - Occupational Stress [...] Mosley is a 78 y.o. female from [place], [place] with a past medical history of [...] She was admitted to the hospital in [place] where MRI on 05/13/2022 demonstrated subcutaneous abscess with concern for septic joint. I&D was performed on 05/13. Cultures grew 4+ staphaureus. She had continuing drainage from the wound and her local split and drum room supervisor recommended transfer [facility] where she was admitted on 05/17/2022. She underwent right transtibial amputation on 05/20/[address] Frank. There was some delay in healing as well as drainage from the residual limb butthis resolved and she was cleared to begin prosthetic training. She followed up in the amputee Clinic and was prescribed a right transtibial prosthesis. Fili from [facility] went up and visited her at the [facility]. She worked with therapy and was able [...] foot. This prosthesis was made at [facility], however, she has experienced maturation of the residual limb with reduction in volume which has required Fili at [facility] to go up from 3 ply to 8 ply socks and add several pads. She has been wearing a plastic manager at night. Patient seen today alongside [...] located near the top of where her plastic manager ends. She has not had issues [...] silicone liners with 3 pads at the [place] liner. The silicone liner is slightly loose [...] Mosley is a 78 y.o. female from [place], [place] with a past medical history of [...] has likely a result of a new plastic manager with silicone director of primary points of the proximal band of the plastic manager. We believe that the issue she [...] Fili will also get her a new Crop Or Grain Farmer without gripping dots at the top cuff. We also reviewed skin and liner/sock hygiene at today's appointment. Specifically we would like herto continue washing her liner with soap and water daily. We recommend using a soap that does not irritate her skin when washing the silicone liner to prevent any dermatitis. After Mark Mosley LPN's vkqa-ua-rutz visit today I anticipate she has good [...] Primary documented in this encounter Care Teams Sap Basis Consultant Relationship Specialty Start Date End Date Elsewhere, Pcp PCP - General Internal Medicine 05/17/22 documented as of this encounter
--- OUTSIDE RECORDS SUMMARY | 2024-02-24 10:28 | XMS_ITS | Continuity of Care Document ---
Author Name Unknown Organization [facility] Address [address] [address] [place] [address] Phone Care Team Providers Care Tariff Supervisor Name Role Phone Unavailable Unavailable Unavailable Procedures Procedure Date Subsqt Hosp-da E&m Stable 15 M 18 Init Hosp-da E&m Mod Severity 8 Ugi Endo; W/contrl Bleed Any M 18 Advance Directives Directive Yes / No Effective Date File Name No Information Encounters Encounter Description Practice Location Reason(s) For Visit Diagnoses Date Provider Providers Copied on Encounter Subsqt Hosp-da E&m Stable 15 M [facility] [place], [address] [address], [place], [place], [id number], tel:[phone] [facility] No Information 8 No Information Referring Provider: Rubin Castaneda, [address] [place], [address]. tel:[phone] Init Hosp-da E&m Mod Severity [facility], [address] [address], [place], [place], [id number], tel:[phone] [facility] No Information 8 [facility]. [address] [facility] [facility] [address], [place], [place], [id number], [place]. tel:[phone] Referring Provider: Rubin Castaneda, [address] [place], [address]. tel:[phone] Family History Family Member Type Diagnosis Age At Onset No Information Payers Payer name Insurance type Covered constitution party ID Authordaniloa timadiha(s) Blue Cross [place] Blue BL [id number] Social History Type Description Quantity Date Captured [...]
--- NOTE | 2024-02-24 10:33 | ED_ITS ---
HPI - General Adult General Chief complaint: Shortness of Breath/Dyspnea Stated complaint: wheezing Time Seen by Provider: 02/24/24 09:43 Source: patient Mode of arrival: ambulatory Limitations: no limitations History of Present Illness HPI narrative: Patient is an 79-year-old female coming in today complaining of 6 days of cough. She states that in the last 2 days her coughing fits or so significant that she feels like she can not breathe. She denies any fevers or chills. Appetite has been normal. She is not short of breath LS she is having a coughing spell. She denies any chest or abdominal pain. She denies any sick contacts that she is aware of. She denies any tobacco use, history of asthma or COPD. She also complains of a sore throat. Related Data Home Medications Medication Instructions Recorded Confirmed ascorbic acid (vitamin C) 500 mg 500 mg PO BID 01/10/24 01/10/24 tablet (Vitamin C) atorvastatin 10 mg tablet 10 mg PO DAILY 01/10/24 01/10/24 carvedilol 6.25 mg tablet 12.5 mg PO BID 01/10/24 01/11/24 cholecalciferol (vitamin D3) 50 2,000 unit PO DAILY 01/10/24 01/10/24 mcg (2,000 unit) capsule losartan 100 mg tablet 100 mg PO DAILY 01/10/24 01/10/24 nifedipine 30 mg tablet,extended mg PO 01/10/24 release 24 hr omega 0-xfd-ovx-fish oil 60 mg-90 2 cap PO BID 01/10/24 01/10/24 mg-500 mg capsule (Fish Oil) pantoprazole 40 mg tablet,delayed 40 mg PO DAILY 01/10/24 01/10/24 release vit A 300 mcg-C 200 mg-E 27 1 tab PO BID 01/10/24 01/10/24 mg-lutein 2 mg and minerals tablet (I-Freya) Previous Rx's Medication Instructions Recorded hydrocortisone 2.5 % topical cream 1 applic topical BID PRN #20 grams 01/11/24 oxycodone 5 mg tablet 5 mg PO Q8H PRN pain #9 tabs 01/11/24 nystatin 100,000 unit/gram topical 1 applic topical DAILY #15 grams 02/08/24 cream benzonatate 100 mg capsule 100 mg PO TID PRN cough #10 caps 02/24/24 Allergies Allergy/AdvReac Type Severity Reaction Status Date / Time Penicillins Allergy Unknown Unknown Verified 08/23/23 12:06 amoxicillin Allergy itching Verified 01/10/24 07:36 atenolol Allergy Fatigued Verified 01/10/24 07:36 clindamycin Allergy Itching Verified 01/10/24 07:36 ibuprofen Allergy GI bleed Verified 01/10/24 07:36 Review of Systems Status of ROS: Reports: 10 or more systems reviewed and unremarkable except as noted in History and below PFSH [facility] Medical History Prediabetes ?R73.03 - Prediabetes (ICD-10) Other hyperlipidemia ?E78.49 - Other hyperlipidemia (ICD-10) Essential hypertension ?I10 - Essential (primary) hypertension (ICD-10) GERD (gastroesophageal reflux disease) ?K21.9 - Gastro-esophageal reflux disease without esophagitis (ICD-10) CATRACHITA (obstructive sleep apnea) ?G47.33 - Obstructive sleep apnea (adult) (pediatric) (ICD-10) Surgical History Hx of cataract extraction ?Z98.49 - Cataract extraction status, unspecified eye (ICD-10) History of bilateral knee replacement ?Z96.653 - Presence of artificial knee joint, bilateral (ICD-10) Hx of below knee amputation ?Z89.519 - Acquired absence of unspecified leg below knee (ICD-10) Social History Smoking Status: Never smoker Do you use any of these nicotine containing products: None How often do you have a drink containing alcohol: never How often do you have six or more drinks on one occasion: Never AUDIT-C Alcohol total score: 0 Non-prescribed substance use: denies use Caffeine: Yes (2 cups coffee/day) Are you using contraception or practicing any form of control: No service: No Exam Narrative: Exam Narrative: Well-nourished well-developed patient in no acute distress. Alert and oriented. Answers questions appropriately. Mood and affect are appropriate. Thoughts are goal oriented and rational. No tangential or magical thinking noted. Patient speaks in full sentences without needing to catch her breath. Voice is hoarse. HEENT: Normocephalic atraumatic. Pupils are equally round reactive to light. Extraocular muscles are intact. Conjunctivae are moist without any icterus noted. Moist mucous membranes. Posterior pharynx is normal. Neck is soft. Cardiovascular: Heart is regular rate and rhythm S1 and S2 are present without any murmurs. Lungs: Clear to auscultation bilaterally no wheezes rhonchi or rales are appreciated. Patient takes deep breaths without any discomfort. Abdomen: Soft and nontender nondistended with normal bowel sounds. Extremities: Patient has had an amputation of the right lower extremity, she has some chronic swelling of the left lower extremity. Skin: Well perfused. Const: Vital Signs, click to edit/add: Vital Signs - 24 hr 02/24/24 09:48 02/24/24 10:20 02/24/24 11:05 Temperature 99.5 F Pulse Rate 73 Pulse Rate [Pulse Oximeter] 78 Respiratory Rate 20 Blood Pressure Blood Pressure [Ri ght Upper Arm] 167/76 H Pulse Oximetry 95 92 91 Oxygen Delivery Me thod Room Air 02/24/24 11:15 02/24/24 11:16 Temperature Pulse Rate 78 74 Pulse Rate [Pulse Oximeter] Respiratory Rate Blood Pressure 154/54 H Blood Pressure [Ri ght Upper Arm] Pulse Oximetry 95 94 Oxygen Delivery Me thod Course Course ED Course: ML is unremarkable, white cell count is minimally elevated at 11.89. Chest x-ray, read by me, does not show any acute pathology. CRP is 1.6. Strep is negative. Triple swab is positive for COVID-19. Vital Signs Vital signs: Initial Vital Signs Temperature 99.5 F 02/24/24 09:48 Temperature Source Temporal Artery Scan 02/24/24 09:48 Pulse Rate 78 02/24/24 09:48 Respiratory Rate 20 02/24/24 09:48 Blood Pressure 167/76 H 02/24/24 09:48 Blood Pressure Mean 106 H 02/24/24 09:48 Pulse Oximetry 95 02/24/24 09:48 Oxygen Delivery Method Room Air 02/24/24 09:48 Vital Signs Temperature 99.5 F 02/24/24 09:48 Pulse Rate 78 02/24/24 09:48 Respiratory Rate 20 02/24/24 09:48 Blood Pressure 167/76 H 02/24/24 09:48 Pulse Oximetry 95 02/24/24 09:48 Oxygen Delivery Method Room Air 02/24/24 09:48 Temperature 99.5 F 02/24/24 09:48 Pulse Rate 74 02/24/24 11:16 Respiratory Rate 20 02/24/24 09:48 Blood Pressure 154/54 H 02/24/24 11:15 Pulse Oximetry 94 02/24/24 11:16 Oxygen Delivery Method Room Air 02/24/24 09:48 Medical Decision Making MDM Narrative Medical decision making narrative: 79-year-old female with COVID-19, on day 6 of her symptoms. She is not hypoxic and is otherwise doing well. Patient will be sent home with Vita Mooney to help with her cough. Lab Data Lab results reviewed: Yes I reviewed the patient's lab results Labs: Lab Results 02/24/24 02/24/24 Range/Units 10:40 10:46 WBC 11.89 H (4.50-11.00) K/uL RBC 4.13 (4.00-5.20) m/uL Hgb 13.3 (12.0-16.0) gm/dL Hct 39.7 (33.0-51.0) % MCV 96 (80-100) fL MCH 32 (26-34) pg MCHC 34 (32-36) gm/dL RDW Coeff of Carla 12.5 (11.5-15.5) % Plt Count 305 (140-440) K/uL Neut % (Auto) 65.3 (42.0-72.0) % Lymph % (Auto) 22.8 (20-44) % [place] % (Auto) 6.8 (0.0-11.0) % Eos % (Auto) 3.9 (0.0-7.0) % Baso % (Auto) 0.8 (0.0-3.0) % Neut # (Auto) 7.80 H (1.7-7.0) K/uL Lymph # (Auto) 2.70 (0.90-2.90) K/uL [place] # (Auto) 0.80 (0.00-0.90) K/UL Eos # (Auto) 0.50 (0.00-0.50) K/uL Baso # (Auto) 0.10 (0.00-0.30) K/uL Abs Immat Gran (auto) 0.00 (0.00-0.30) K/uL Imm/Tot Granulo (auto) 0.4 % C-Reactive Protein 1.6 H (0.5-1.0) mg/dL SARS-CoV-2 (PCR) POSITIVE SARS-CoV-2 A (Negative) Influenza Type A (PCR) Negative PCR FLU A (Negative) Influenza Type B (PCR) Negative PCR FLU B (Negative) RSV (PCR) Negative PCR RSV (Negative) Group A Strep DNA NOT DETECTED (Not Detectd) Imaging Data Chest x-ray: Attestation: I have reviewed the pertinent imaging results. Radiologist's impression: Patient: KHUSHBU FOREMAN Facility:?[facility] Patient ID:?[id number] Site Patient ID:?[id number]. Site :?[id number] Study:?XRay-Chest 2 VIEW-02/24/2024 10:33:14 AM Ordering Physician:HI Final Report: INDICATION: Shortness of breath TECHNIQUE: Chest 2 views. COMPARISON: Chest x-ray 10/02/2015 FINDINGS: The heart is stable in size. The pulmonary vasculature is within normal limits. The lungs are clear without focal consolidation, pleural effusion or pneumothorax. There are ogco-rx-jrthrlgi degenerative changes of the thoracic spine. IMPRESSION: No acute process. Discharge Plan Discharge Clinical Impression: COVID-19 Patient Disposition: Home, Self-Care Condition: Stable Additional Instructions: You have COVID-19. You should quarantine for total of 10 days since the beginning of your symptoms, you are on day 6. Take prescribed tablets for cough as needed/as prescribed. Prescriptions: New benzonatate 100 mg capsule 100 mg PO TID PRN (Reason: cough) Qty: 10 0RF No Action carvedilol 6.25 mg tablet 12.5 mg PO BID atorvastatin 10 mg tablet 10 mg PO DAILY ascorbic acid (vitamin C) [Vitamin C] 500 mg tablet 500 mg PO BID nifedipine 30 mg tablet extended release 24hr PO pantoprazole 40 mg tablet,delayed release (DR/EC) 40 mg PO DAILY losartan 100 mg tablet 100 mg PO DAILY I-Freya 300 mcg-200 mg-27 mg-2 mg tablet 1 tab PO BID omega 8-tap-tco-fish oil [Fish Oil] 60-90-500 mg capsule 2 cap PO BID cholecalciferol (vitamin D3) 50 mcg (2,000 unit) capsule 2,000 unit PO DAILY oxycodone 5 mg tablet 5 mg PO Q8H PRN (Reason: pain) Qty: 9 0RF hydrocortisone 2.5 % cream 1 applic topical BID PRNQty: 20 0RF Rx Instructions: apply to rash on left hand twice daily. Apply to rash on right leg daily nystatin 100,000 unit/gram cream 1 applic topical DAILY Qty: 15 0RF Follow Up/Referrals: Isabell Grant MD [Primary Care Provider] - Stand Alone Forms: [employer] Info Instructions
[2024-02-24 10:58] LABS: Basophils Percent Auto 0.8 % (0.0-3.0); Eosinophils Percent Auto 3.9 % (0.0-7.0); Hematocrit 39.7 % (33.0-51.0); Hemoglobin* 13.3 gm/dL (12.0-16.0); Immature Granulocytes Pct Auto 0.4 %; Lymphocytes Percent Auto 22.8 % (20-44); Mean Corpuscular HGB Conc 34 gm/dL (32-36); Mean Corpuscular Hemoglobin 32 pg (26-34); Mean Corpuscular Volume 96 fL (80-100); Monocytes Percent Auto 6.8 % (0.0-11.0); Neutrophils Percent Auto 65.3 % (42.0-72.0); Platelet Count* 305 K/uL (140-440); RDW Coefficient of Variation % 12.5 % (11.5-15.5); Red Blood Count 4.13 m/uL (4.00-5.20); White Blood Count* 11.89 K/uL (4.50-11.00)
[2024-02-24 11:03] LABS: Slide Review Reflex No
[2024-02-24 11:05] VITALS: PULSE 73; O2SAT 91
[2024-02-24 11:15] VITALS: BP 154/54; PULSE 78; O2SAT 95
[2024-02-24 11:15] LABS: C Reactive Protein* 1.6 mg/dL (0.5-1.0)
[2024-02-24 11:16] VITALS: PULSE 74; O2SAT 94
[2024-02-24 11:33] LABS: Strep A DNA Probe* NOT DETECTED (Not Detectd)
[2024-02-24 11:58] LABS: PCR FLU A Negative PCR FLU A (Negative); PCR FLU B Negative PCR FLU B (Negative); PCR RSV Negative PCR RSV (Negative); SARS PCR* POSITIVE SARS-CoV-2 (Negative)
== END 2024-02-24 12:40 | disposition home or self-care (01) ==
PROVIDERS: Emergency Provider Family Medicine; PCP Family Medicine
DX: U07.1 COVID-19 (principal)
CPT/HCPCS: 36415; 71046; 85025; 86140; 87631; 87651; 94664; 94761; 99284

== ENCOUNTER 2024-07-02 09:43 | Outpatient (CLI) | payer MEDICARE, BC, SELFPAY ==
--- NOTE | 2024-07-02 10:15 | CRLHL7_ITS ---
For Patients: As a result of the Century Cures Act, medical imaging exams and procedure reports are released immediately into your electronic medical record. You may view this report before your referring provider. If you have questions, please contact your health care provider. ULTRASOUND-GUIDED BREAST BIOPSY AND POST-BIOPSY DIGITAL MAMMOGRAM FOR BIOPSY MARKER PLACEMENT CLINICAL HISTORY: Indeterminate nodular density. COMPARISON STUDIES: 06/25/2024. TECHNIQUE: Real-time ultrasound with image documentation was used for targeting the breast lesion. Core biopsy specimens were obtained using an automated gun with a 18-gauge biopsy needle. Post-biopsy CC and ML digital mammograms were obtained to document position of the biopsy marker. CONSENT and TIME OUT: The procedure, risks, and alternatives were explained to the patient and a consent was signed. [facility] Protocol was followed including pre-procedure verification that relevant information/documentation was available, reviewed and properly matched to the patient; consent accurate and complete; and equipment and supplies available. Time Out was conducted just prior to starting procedure to verify the four required elements: patient identity, correct side/site marked (if applicable), procedure, relevant images/results properly labeled and displayed (if applicable). PROCEDURE: The patient was positioned supine on the ultrasound table. The breast was prepped with ChloraPrep. 5 cc of 1 percent lidocaine used for local anesthesia. Core samples were obtained. A sterile metal biopsy clip was placed percutaneously to sandeep the lesion position within the breast. The specimens were placed in 10% formalin and sent to the pathology department. Pressure was held on the biopsy site until all bleeding subsided. The skin incision was closed with Steri-Strips. An ice pack was positioned over the biopsy site. Post-biopsy instructions were reviewed with the patient, and a written copy was given to her. LATERALITY: RIGHT breast. LESION: Hypoechoic nodule measuring 3 x 4 x 6 mm at 8 o`clock 3 cm from the nipple. SUSPICION FOR MALIGNANCY: Moderate. NUMBER OF SAMPLES: 5. BIOPSY CLIP SHAPE: Oval. PROXIMITY OF CLIP TO TARGET: Within the lesion. IMPRESSION: Ultrasound-guided breast biopsy. When the pathology report is available, an addendum to this report will be made. ACR not applicable Dictated by Norbert Sinclair MD @ 07/02/2024 12:12:33 PM /neto/jack SP/Dictated by: Norbert Sinclair MD @ 07/02/2024 12:12:00 PM (Electronically Signed)
--- NOTE | 2024-07-02 11:00 | CRLHL7_ITS ---
For Patients: As a result of the Century Cures Act, medical imaging exams and procedure reports are released immediately into your electronic medical record. You may view this report before your referring provider. If you have questions, please contact your health care provider. PLEASE SEE RIGHT BREAST ULTRASOUND-GUIDED BIOPSY OF SAME DAY. CRL:sp SP/Dictated by: Norbert Sinclair MD @ 07/02/2024 12:11:00 PM (Electronically Signed)
== END 2024-07-02 09:44 | disposition home or self-care (01) ==
LOC: US 09:46
PROVIDERS: PCP Family Medicine; Visit Provider Family Medicine
DX: N63.10 Unspecified lump in the right breast, unspecified quadrant (principal); C50.911 Malignant neoplasm of unspecified site of right female breast; R92.8 Other abnormal and inconclusive findings on diagnostic imaging of breast
CPT/HCPCS: 19083; 77065; 88305; 88341; 88342; 88360; 88361; 88377; A4648; A4649

== ENCOUNTER 2024-09-05 07:39 | Day surgery (SDC) | payer MEDICARE, BC, SELFPAY ==
[2024-09-05] VITALS (9 sets, daily range): BP systolic 91–159; BP diastolic 55–78; PULSE 62–75; RESP 16; TEMP 36.2–36.3; O2SAT 90–93; BMI 27.8
--- OUTSIDE RECORDS SUMMARY | 2024-09-05 07:42 | XMS_ITS ---
Author Organization [facility] Address [address] [place] [address] Care Team Providers Care Performance Improvement Coordinator Name Role Phone Unavailable Unavailable Unavailable Surgery Details Not on file Complications Check Surgery Details section. Procedure Estimated Blood Loss Check Surgery Details section. Procedure Findings Check Surgery Details section. Procedure Specimens Taken Check Surgery Details section.
--- OUTSIDE RECORDS SUMMARY | 2024-09-05 07:42 | XMS_ITS | Referral Summary ---
Author Organization [facility] Address [address] [place] [address] Care Team Providers Care Cloth Pattern Maker Name Role Phone Elsewhere, Pcp Primary Care Provider Unavailabl e Source Comments Patient records contain information from all sites at [facility]. For routine questions regarding patient records, call [phone] during business hours, M-F 8:00 AM - 5:00 PM Central Time. Record requests for emergency care only can be directed to [phone] at any time.[facility] Allergies Active Allergy Reactions Criticality Noted Date Comments Amoxicillin Itching Medium 05/17/2022 Atenolol Other (see comments) 05/17/2022 Fatigue Clindamycin Itching Medium 05/17/2022 Ibuprofen GI bleeding High 05/17/2022 Penicillins Itching Medium 05/17/2022 Medications fish oil 500 mg capsule Take 1,000 mg by mouth 2 (two) times a day. Active vitamin A,C,E-lutein-mi nerals (OCUVITE W/LUTEIN) 300 mcg (1,000 Unit)-200 mg-60 Unit-2 mg tablet Take 1 tablet by mouth 2 (two) times a day with meals. Active carvediloL (COREG) 6.25 mg tablet Take 6.25 mg by mouth 2 (two) times a day with meals. Active cholecalciferol , vitamin D3, 25 mcg (1,000 Unit) tablet [...] by mouth daily. Hold until PCP follow-up 2 Active bisacodyL (DULCOLAX) 10 mg suppository Insert 1 suppository (10 mg total) into the rectum daily as needed for constipation. 2 Active sodium chloride (OCEAN) 0.65 % nasal spray Administer 1 spray into each nostril as needed for congestion. 15 mL 12 2 Active melatonin 3 mg tablet Take 2 tablets (6 mg total) by mouth at bedtime as needed for sleep. 30 tablet 1 2 Active dextromethorpha n-guaiFENesin (ROBITUSSIN-DM) 10-100 mg/5 mL syrup Take 10 mL by mouth every 4 (four) hours as needed for cough or congestion. 354 mL 1 2 Active polyethylene glycol (MIRALAX) 17 gram powder packet Take 1 packet (17 g total) by mouth 2 (two) times a day as needed for constipation. Dissolve each 17 g dose in 240 mLs (8 ounces) of beverage. 2 Active losartan (COZAAR) 100 mg tablet Take 1 tablet (100 mg total) by mouth daily. Hypertension 2 Active cefadroxil (DURICEF) 500 mg capsule Take 500 mg by mouth at bedtime. 2 Active Active Problems Problem Noted Date Diagnosed [...] How often do you attend chur or sabianism services? More than 4 times per year 07/15/2022 Do you belong to any clubs o r organizations such as roman catholic groups, unions, fraternal or athletic groups, or [...] and heating? Not hard at all 07/15/2022 [facility] [place] of Occupat ional Health - Occupational Stress [...] place to sleep or slept in a fpc (including now)? No 07/15/2022 Nutrition Answer Date [...] degree you have received? 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 Gender Identity Female 07/15/2022 11:12 AM CDT [...] on file Medical Devices Implanted Type Area House Carpenter Device Identifier Shelf Expiration Date Model / Serial / Lot Knee Implant Knee Implant Bilateral : Knee Procedures Procedure Name Priority Date/Time Associated Diagnosis Comments BASIC METABOLIC PANEL, S/P Routine 07/03/2022 6:18 AM CDT from Last 3 Months or Most Recently Relevant to Health Maintenance Results * (ABNORMAL) Basic Metabolic Panel (07/03/2022 6:18 AM CDT) Potassium, P 4.0 3.6 - 5.2 mmol/L 07/03/2022 6:49 AM CDT NPRG Sodium, P 133(L) 135 - 145 mmol/L 07/03/2022 6:49 AM CDT NPRG Chloride, P 95(L) 98 - 107 mmol/L 07/03/2022 6:49 AM CDT NPRG Bicarbonate, P 29 22 - 29 mmol/L 07/03/2022 6:49 AM CDT NPRG Anion Gap, P 9 7 - 15 07/03/2022 6:49 AM CDT NPRG BUN (Blood Urea Nitrogen), P 11 6 - 21 mg/dL 07/03/2022 6:49 AM CDT NPRG Creatinine 0.53(L) 0.59 - 1.04 mg/dL 07/03/2022 6:49 AM CDT NPRG Estimated GFR (eGFR) >90 >=60 mL/min/BSA 07/03/2022 6:49 AM CDT NPRG Comment: Estimated GFR calculated using the 2020 CKD_EPI creatinine equation. Calcium, Total, P 9.2 8.8 - 10.2 mg/dL 07/03/2022 6:49 AM CDT NPRG Glucose, P 103 70 - 140 mg/dL 07/03/2022 6:49 AM CDT NPRG Blood (Blood, Venous) 07/03/2022 6:18 AM CDT 07/03/2022 6:21 AM CDT Leland Sadler M.D. LAB BLOOD ADD-ON Final R esult [facility] [address] [place] [address], [place] NPRG [facility] [address] [place] [address] from Last 3 Months or Most Recently Relevant to Health Maintenance Insurance [facility] [place] [id number] MEDICARE Advance Directives For more information, please contact: [phone] * DNR/DNI (Latest Code Status on File) [...] 4:06 PM 05/20/2022 9:39 AM Care Teams Cloth Pattern Maker Relationship Specialty Start Date End Date Elsewhere, Pcp PCP - General Internal Medicine 05/17/22
--- OUTSIDE RECORDS SUMMARY | 2024-09-05 07:42 | XMS_ITS | Clinical Summary ---
Author Organization [facility] Address [address] [place] [address] Care Team Providers Care Body Builder Name Role Phone Elsewhere, Pcp Primary Care Provider Unavailabl e Source Comments Patient records contain information from all sites at [facility]. For routine questions regarding patient records, call [phone] during business hours, M-F 8:00 AM - 5:00 PM Central Time. Record requests for emergency care only can be directed to [phone] at any time.[facility] Allergies Active [...] How often do you attend chur or jew services? More than 4 times per year 07/15/2022 Do you belong to any clubs o r organizations such as restoration groups, unions, fraternal or athletic groups, or [...] and heating? Not hard at all 07/15/2022 [facility] [place] of Occupat ional Health - Occupational Stress [...] place to sleep or slept in a assisted (including now)? 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 Gender Identity Female 07/15/2022 11:12 AM CDT [...] Last Done Comments Office Visit for Blood Pressure Check / Re-check 1944 Depression Screening (Annual PHQ-2) 10/23/2023 Fall Risk Screen (Annual) 10/23/2023 COVID-19 Vaccine ( season) 2024 11/28/2023, 09/20/2023, 04/06/2023, Additional history exists Creatinine Level (Kidney Function Test) 12/20/2024 12/20/2023, 09/20/2023, 07/03/2022, Additional history exists Fasting Glucose for Diabetes Screening 12/20/2024 12/20/2023, 09/20/2023, 07/03/2022, Additional history exists Potassium Level 12/20/2024 12/20/2023, 08/24, 07/03/2022, Additional history exists Sodium Level 12/20/2024 12/20/2023, 08/24, 07/03/2022, Additional history exists DTaP,Tdap,and Td Vaccines (3 - Td or Tdap) 02/04/2026 02/05/2016, 03/22/2012, 03/27/2003 Pneumococcal vaccine (65+ years) Completed 03/25/2015, 02/11/2009 Zoster Vaccines Completed 12/17/2018, 07/23, 04/03/2007 RSV vaccine - (32-36 weeks) or 60+ years Completed 11/28/2023 Influenza Vaccine Completed 07/29/2024, , 08/10/2022, Additional history exists IPV Vaccines Aged Out No longer eligi ble based on patient's age to complete this topic Medical Devices Implanted Type Area Fish Flipper Device Identifier Shelf Expiration Date Model / Serial / Lot Knee Implant Knee Implant Bilateral : Knee Procedures Procedure Name Priority Date/Time Associated Diagnosis Comments BASIC METABOLIC PANEL, S/P Routine 07/03/2022 6:18 AM CDT from Last 3 Months or Most Recently Relevant to Health Maintenance Results * (ABNORMAL) Basic Metabolic Panel (07/03/2022 6:18 AM CDT) Pathologist [facility] Potassium, P 4.0 3.6 - 5.2 mmol/L [...] M.D. LAB BLOOD ADD-ON Final R esult [facility] [address] [place] [address], [facility] NPRG [facility] [address] [place] [address] from Last 3 Months or Most Recently Relevant to Health Maintenance Insurance [facility] MEDICARE Advance Directives For more information, please contact: [phone] * DNR/DNI (Latest Code Status on File) [...] 4:06 PM 05/20/2022 9:39 AM Care Teams Body Builder Relationship Specialty Start Date End Date Elsewhere, Pcp PCP - General Internal Medicine 05/17/22
--- NOTE | 2024-09-05 08:55 | SUR.PREOP ---
Dr. Abreu in to see pt and her sister, Claudia.
--- NOTE | 2024-09-05 09:10 | W.PM.H&PU ---
History & Physical Update History & Physical Update H&P Reviewed and patient assessed: No changes noted
--- NOTE | 2024-09-05 09:15 | CRLHL7_ITS ---
For Patients: As a result of the Century Cures Act, medical imaging exams and procedure reports are released immediately into your electronic medical record. You may view this report before your referring provider. If you have questions, please contact your health care provider. BREAST WIRE LOCALIZATION USING ULTRASOUND GUIDANCE x 2 CLINICAL HISTORY: Biopsy-proven malignancy 8 o`clock 3 cm from the nipple. Indeterminate nodule upper outer quadrant. LATERALITY: RIGHT breast for both lesions. LESION: At 8 o`clock 3 cm from the nipple there is a solid hypoechoic nodule measuring 3 x 4 x 6 millimeters containing an oval clip. At 11 o`clock 7 cm from the nipple there is a hypoechoic nodule at posterior depth measuring 6 x 6 millimeters. LOCALIZATION WIRE: Kopans hook wire for both lesions. TECHNIQUE: Each localization wire was placed using real-time ultrasound guidance with image documentation. Postprocedure mammogram was not obtained as the patient did not have her lower extremity prosthesis today. CONSENT and TIME OUT: The procedure, risks, and alternatives were explained to the patient and a consent was signed. [place] Protocol was followed including pre-procedure verification that relevant information/documentation was available, reviewed and properly matched to the patient; consent accurate and complete; and equipment and supplies available. Time Out was conducted just prior to starting procedure to verify the four required elements: patient identity, correct side/site marked (if applicable), procedure, relevant images/results properly labeled and displayed (if applicable). PROCEDURE: For each wire placement, the skin was prepped with ChloraPrep and 6 cc of 1% lidocaine was injected for local anesthesia. The localization wire was placed within or near the targeted breast lesion using ultrasound guidance. The patient tolerated the procedure well. Regarding the lesion at 11 o`clock 7 cm from the nipple, a HydroMARK clip was placed with ultrasound guidance to assist with surgical removal. PROXIMITY OF WIRE TO LESION: Both wires are present within the appropriate lesion adjacent to the clips. IMPRESSION: Successful breast wire localization x2. Dr. Abreu was present during the procedure. ACR not applicable Dictated by Norbert Sinclair MD @ 09/05/2024 11:52:28 AM jj/Dictated by: Norbert Sinclair MD @ 09/05/2024 11:52:00 AM (Electronically Signed)
[2024-09-05] MEDS: CIPROFLOXACIN 400 MG/200 ML inj IVPB (10:02)
--- NOTE | 2024-09-05 10:10 | P.GSOP_ITS ---
Operative Note Date of procedure: 09/05/24 Pre-op diagnosis: 1. 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 Additional suspicion right-sided mass not previously biopsied or seen on ultrasound, 11:00 a.m., 7 cm from the nipple. Post-op diagnosis: Same Type of Procedure: 1. Wire localized right lumpectomy 2. Wire localized excisional biopsy additional right breast mass Indications: The patient is an 79-year-old female who was found on mammogram to have a suspicious mass in her right breast. This was biopsied and found to be an invasive ductal carcinoma, ERPR positive, HER2 negative. The patient was not sure if she wants to undergo treatment. She did consent to a discussion and we elected to proceed with lumpectomy. She did have an ultrasound evaluation of her axilla which showed mildly enlarged nodes, however with normal architecture, felt to be reactive and benign. Therefore lymph node biopsy was omitted per Choosing Wisely guidelines. Of note, on the morning of localization, an area that was not previously seen on ultrasound to biopsy was visualize at 11:00 a.m., 7 cm from the nipple. After discussion with the patient, the area was clipped by Radiology and a wire localized for excisional biopsy at the time of lumpectomy. Procedure Description: After discussing the risks and benefits of the procedure, the patient signed informed consent.? The operative site was marked and the patient was brought to the operating room and placed on the operating table in supine position.? Care was taken to pad the patient's pressure points.?? The patient was then given sedation by anesthesia.?? The operative site was then prepped and draped in the usual sterile fashion.? A time-out was then performed. Local anesthetic was injected into the skin and subcutaneous tissue along the lateral aspect of the nipple areolar border. A curvilinear incision was made along the nipple areolar border laterally. I turned my attention first to the known cancer at 8 o'clock. A subcutaneous plane was created laterally until the wire was encountered. This was pulled through the incision. A swath of tissue around the wire was then taken using cautery. This was taken down to the fascia. This was removed and inked for orientation and sent for x-ray. The x- ray did show that clip was contained within the specimen. The specimen was then sent to pathology. The margin was grossly negative with the closest margin bein g anterior at the skin. Attention was turned to the suspicious mass that had not been biopsied previously. Again a subcutaneous plane was created until the wire was encountered. This was then pulled through the incision and a swath of tissue around the wire was removed down to muscle fascia. This was removed and inked for orientation and margins. This was sent for x-ray which did show the clip present. Pathology examined the mass and noted it to have widely negative margins grossly. The wound was examined. Hemostasis appeared excellent. Clips were placed within the wound cavity to sandeep orientation. Specifically, I placed one clip superior on the chest wall at the site of the 11 o'clock lesion and clip inferior at the site of the 8 o'clock lesion. The skin was then closed with 3-0 Vicryl dermal and 4-0 Monocryl running subcuticular suture. Sterile dressings were then applied. ? The patient was then woken and transported to the recovery area in stable condition. ? The patient tolerated the procedure well. Findings: 1. Known right breast invasive ductal carcinoma 8 o'clock with clip seen on x- ray. Margins negative on gross pathology 2. Suspicious lesion found incidentally at the time of wire localization, right breast, 11 o'clock clip seen on specimen x-ray and mass seen in gross specimen with widely negative margins. Anesthesia: MAC Surgeon: Jessica Abreu MD Estimated blood loss (mL): 5 Additional Specimen Information: 1. Known right breast invasive ductal carcinoma, 8 o'clock, 3 cm from the nipple 2. Right breast mass, 11 o'clock 7 cm from the nipple, seen incidentally on ultrasound on day of surgery. Condition: stable Disposition: same day
[2024-09-05] MEDS: BUPIVACAINE 0.25% 30 ML INJECTION (10:18)
[2024-09-05] MEDS: LIDOCAINE 1% MDV 20 ML INJECTION (10:18)
--- NOTE | 2024-09-05 10:24 | W.ANESCHARGE ---
Anesthesia Charges Start Date/Time Anesthesia Start Date: 09/05/24 Anesthesia Start Time: 09:54 Stop Date/Time Anesthesia Stop Date: 09/05/24 Anesthesia Stop Time: 11:16 Summary Extremes of Age - Over 70 or under 1: MDA
--- NOTE | 2024-09-05 10:28 | CRLHL7_ITS ---
For Patients: As a result of the Cures Act, medical imaging exams and procedure reports are released immediately into your electronic medical record. You may view this report before your referring provider. If you have questions, please contact your health care provider. RIGHT BREAST SPECIMEN RADIOGRAPH CLINICAL HISTORY: Indeterminate nodule. COMPARISON: 09/05/2024, 07/02/2024. FINDINGS: Specimen contains the localization wire and the indeterminate nodule with associated clip. IMPRESSION: Specimen contains the localization wire, the indeterminate nodule and associated clip. Results were immediately verbally reported to the operating room staff by the radiology department staff. ACR not applicable Dictated by Norbert Sinclair MD @ 09/05/2024 11:28:27 AM jj/Dictated by: Norbert Sinclair MD @ 09/05/2024 11:28:00 AM (Electronically Signed)
--- NOTE | 2024-09-05 10:37 | CRLHL7_ITS ---
For Patients: As a result of the Century Cures Act, medical imaging exams and procedure reports are released immediately into your electronic medical record. You may view this report before your referring provider. If you have questions, please contact your health care provider. RIGHT BREAST SPECIMEN RADIOGRAPH CLINICAL HISTORY: Biopsy-proven malignancy. COMPARISON: 06/25/2024, 07/02/2024, 09/05/2024. FINDINGS: Two views of the RIGHT breast specimen submitted. Specimen contains the biopsied mass, the biopsy clip, and the localization wire. IMPRESSION: Specimen contains the biopsied mass, the biopsy clip, and the localization wire. Results were immediately verbally reported to the operating room staff by the radiology department staff. ACR not applicable Dictated by Norbert Sinclair MD @ 09/05/2024 11:49:36 AM jj/Dictated by: Norbert Sinclair MD @ 09/05/2024 11:49:00 AM (Electronically Signed)
--- NOTE | 2024-09-05 11:14 | W.ANESCHARGE ---
Anesthesia Charges Start Date/Time Anesthesia Start Date: 09/05/24 Anesthesia Start Time: 09:54 Stop Date/Time Anesthesia Stop Date: 09/05/24 Anesthesia Stop Time: 11:16
--- NOTE | 2024-09-05 13:22 | SUR.PHASEII ---
Pt dressing intact. Khris wrap in place. Pt reports some discomfort on right breast. Ice pack applied. Pain medication to be given. Tolerating crackers and coffee. Sister, Claudia, supportive at bedside.
[2024-09-05] MEDS: ACETAMINOPHEN 325 MG TABLET 650 MG PO (13:28)
--- NOTE | 2024-09-05 14:05 | SUR.PHASEII ---
Pt rated breast pain 12/30. Tylenol given. Reviewed d/c instructions with sister and pt. All questions answered. Pt discharge back to [facility] via her wheelchair. [facility]( [facility] transport services) transport pt back home. Claudia will meet them at [facility].
== END 2024-09-05 14:00 | disposition home or self-care (01) ==
PROVIDERS: PCP Family Medicine; Visit Provider Surgery
PROC: (CPT 19301; principal; 2024-09-05 10:00)
PROC: (CPT 19301; 2024-09-05 10:00)
DX: C50.511 Malignant neoplasm of lower-outer quadrant of right female breast (principal); Z17.0 Estrogen receptor positive status [ER+]; Z17.21 Progesterone receptor positive status; N63.11 Unspecified lump in the right breast, upper outer quadrant
CPT/HCPCS: 19301; 19125; 00400; 19285; 88307; 88360; 88361; 99100; J2003; A4648; A9270; C1769; J0665; J0744; J2704; J3010

== ENCOUNTER 2024-10-02 08:55 | Outpatient (RCR) | payer MEDICARE, BC, SELFPAY | END 2025-03-31 23:59 | disposition home or self-care (01) | LOC: CCIC 08:55 | PROVIDERS: PCP Family Medicine; Visit Provider Internal Medicine Hematology & Oncology | DX: C50.911 Malignant neoplasm of unspecified site of right female breast (principal); Z17.0 Estrogen receptor positive status [ER+]; Z89.511 Acquired absence of right leg below knee; Z99.3 Dependence on wheelchair | CPT/HCPCS: 99202; 99205 ==